=== PATIENT | male | born 1955 | race Caucasian/White ===

== ENCOUNTER → 2017-01-11 | Outpatient (CLI) | payer OTHER ==
[~2017-01-11] MED LIST: ACETAMINOPHEN PO; ACTOS PO; ASPIRIN EC81 M1 PO; ASPIRIN PO; ATENOLOL PO; ATORVASTATIN; BACTRIM DS TABL1 TA1 PO; CELEBREX PO; CLOPIDOGREL BIS75 MG PO; FLEXERIL10 MG PO; FUROSEMIDE40 MG PO; GLUCOTROL PO; GLUCOTROL XL10 MG PO; GLYNASE PO; IBUPROFEN800 MG PO; KEFLEX PO; KEFLEX500 MG PO; LISINOPRIL; LISINOPRIL2.5 MG PO; LISINOPRIL20 MG PO; LORTAB 7.5-5001 TAB PO; METFORMIN; METFORMIN HCL850 MG PO; METFORMIN PO; METOPROLOL; METOPROLOL SUCC25 MG PO; MEVACOR PO; NAPROSYN250 M1 PO; NORCO1 TAB 10/3 PO; ONE DAILY MULT1 EAC2 PO; OSTEO BI-FLEX1 EAC1 PO; PHENERGAN25 MG PO; POTASSIUM CHLO20 ME1 PO; PREDNISONE10 MG PO; RANEXA500 MG PO; TRICOR145 MG PO; [UNRECOGNIZED DRUG - OTHER] PO
--- NOTE | ~2017-01-11 | CR97 ---
[facility] A Service of [facility] & [facility] RADIOLOGY TEXT RESULTS PATIENT: EMILIANO KUMAR LOCATION: [facility] : 53 UNIT #: [id number] AGE: [address]: Jonny Mckeon III, MD SEX: M ORDER DR: [id number] [facility] [place] [address] [place], [place] [address] [id number] O MR#: [id number] Acc #: [id number] NAME: EMILIANO KUMAR : 1955 SEX: M STUDY DATE/TIME: 01/11/2017 7:51 UNIT: [facility] ROOM: STUDY DESCRIPTION: CR Esophagram Attending Physician: Jonny Mckeon III, M.D. Referring Physician: Jonny Mckeon III, M.D. Ordering Physician: Jonny Mckeon III, M.D. Primary Care Physician: Sujey Luevano M.D. MEDICAL IMAGING REPORT This report is preliminary unless electronic signature is present EXAM Fluoroscopic esophagram COMPARISON CT abdomen and pelvis dated November 17, 2015 and esophagram dated September 11, 2010. INDICATION 61-year-old male with history of gastric lap-band with dyspnea, emesis and epigastric pain with supine positioning for approximately 2 months. The patient reports that saline has been removed from the gastric lap-band collar without improvement in symptoms. FINDINGS Patient was administered thick barium by mouth followed by imaging of the esophagus in the upright left posterior oblique positioning at 3 frames per second. Total fluoro time 0.7 minutes. A total of 11 images were obtained. Median sternotomy wires and surgical clips are noted, consistent with prior CABG. There are minimal tertiary contractions of the mid to distal esophagus. There is no evidence of extrinsic or intrinsic mass lesion of the esophagus. There is no evidence of hiatal hernia. There is no evidence of gastric lap-band collar slippage. IMPRESSION 1. Grossly stable position of gastric lap-band collar without evidence of slippage. 2. Minimal tertiary contractions of the vhn-ck-mywtfo esophagus not significantly changed from 2009, likely reflecting mild dysmotility. This may be clinically insignificant. 3. No evidence of hiatal hernia. No intrinsic or extrinsic esophageal lesions. Dictated by... [facility] A Service of [facility] RADIOLOGY TEXT RESULTS PATIENT: EMILIANO KUMAR LOCATION: [facility] : 53 UNIT #: [id number] AGE: [address]: Jonny Mckeon III, MD SEX: M ORDER DR: Eric May M.D. THIS IS AN ELECTRONICALLY VERIFIED REPORT Eric May M.D. at 01/12/2017 12:28 PM Inge TD: 01/12/2017 10:58 JOB #: [id number] MEDICAL IMAGING REPORT COPY
== END | disposition home or self-care (01) ==
LOC: CRAD 07:05
DX: R10.13 Epigastric pain (principal); Z98.84 Bariatric surgery status
CPT/HCPCS: 74220

== ENCOUNTER → 2017-02-10 | Outpatient (CLI) | payer OTHER ==
[2017-02-10 11:12] LABS: BUN/CREATININE RATIO 18.57; CALCIUM SERUM 9.5 mg/dL (8.4-10.2); CREATININE SERUM 1.4 mg/dL (0.6-1.4); GLOM FILT RATE Estimated 53.5 mL/min (>60); POTASSIUM 4.6 mmol/L (3.5-5.1)
== END | disposition home or self-care (01) ==
LOC: CAMB 09:35
PROVIDERS: Surgery
DX: Z01.812 Encounter for preprocedural laboratory examination (principal)
CPT/HCPCS: 36415; 80048